=== PATIENT | female | born 1930 | race American Indian/Alaskan Native ===

== ENCOUNTER 2017-05-24 14:21 | Outpatient (CLI) | payer MEDICARE ==
--- NOTE | 2017-05-25 10:21 | Mammography Report ---
Screening mammogram: The patient had this exam on the above date . It was indicated to us that previous exams should be available from 2015 that would be helpful in providing optimal evaluation with regards to the current study. A final report will be issued, pending receipt of the prior study. CAD was utilized. BI-RADS CATEGORY: 0 = Needs additional imaging evaluation ACR BI-RADS MAMMOGRAPHIC CODES: 0 = Needs additional imaging evaluation; 1 = Negative; 2 = Benign; 3 = Probably benign; 4 = Suspicious; 5 = Malignant; 6 = Known biopsy-proven malignancy COMMENT: 1. Dense breast tissue, i.e., adenosis, fibrocystic changes, etc., may obscure an underlying neoplasm. 2. Approximately 10% of cancers are not detected with mammography. 3. A negative mammography report should not delay biopsy if a clinically suspicious mass is present.
== END 2017-05-24 14:22 | disposition home or self-care (01) ==
LOC: MAMMO 14:21
PROVIDERS: ATTEND Nurse Practitioner
DX: Z12.31 Encounter for screening mammogram for malignant neoplasm of breast (principal)
CPT/HCPCS: 77067; G0202

== ENCOUNTER 2019-08-19 09:13 | Outpatient (CLI) | payer MEDICARE ==
--- NOTE | 2019-08-19 11:51 | Mammography Report ---
DIGITAL SCREENING MAMMOGRAM WITH CAD, 08/19/2019 INDICATION: Routine screening mammography. TECHNIQUE: Digital bilateral 2D mammography was obtained in the craniocaudal and mediolateral obliq ue projections. This examination was interpreted with the benefit of Computer-Aided Detection analysi s. COMPARISON: [id number] FINDINGS: Breast Density: The breasts are almost entirely fatty. There is no evidence of dominant mass, suspicious calcifications or architectural distortion in eithe r breast. IMPRESSION: No mammographic evidence of malignancy. Follow up recommendation: Routine yearly BI-RADS Category 1: Negative. A "normal" or negative report should not discourage follow up or biopsy of a clinically significant f inding. A written summary of these findings will be mailed to the patient. The patient will be entered into a mammography reporting system which will generate a reminder letter for the patient's next appointmen t at the appropriate interval. The [employer] recommends yearly mammograms starting at age 40 and continuing as l hany as a woman is in good health. Breast MRI is recommended for women with an approximate 20-25% or greater lifetime risk of breast cancer, including women with a strong family history of breast or ova geni cancer or who have been treated for Hodgkin's disease. Signer Name: Tone Walker MD Signed: 08/19/2019 11:47 AM Workstation Name: [id number]
== END 2019-08-19 09:14 | disposition home or self-care (01) ==
LOC: MAMMO 09:13
PROVIDERS: ATTEND Internal Medicine
DX: Z12.31 Encounter for screening mammogram for malignant neoplasm of breast (principal)
CPT/HCPCS: 77067

== ENCOUNTER 2020-08-23 09:30 | Outpatient (CLI) | payer MEDICARE ==
--- NOTE | 2020-08-23 11:14 | Mammography Report ---
DIGITAL SCREENING MAMMOGRAM WITH CAD, 08/23/2020 CLINICAL INFORMATION / INDICATION: Routine screening mammography. SCREENING TECHNIQUE: Digital bilateral 2D mammography was obtained in the craniocaudal and mediolateral obliqu e projections. This examination was interpreted with the benefit of Computer-Aided Detection analysis . COMPARISON: 08/19/19, 05/28/18 FINDINGS: Breast Density: The breasts are almost entirely fatty. No dominant mass, suspicious calcifications, or architectural distortion in either breast. IMPRESSION: No mammographic evidence of malignancy. Follow up recommendation: Routine yearly BI-RADS Category 1: Negative. A "normal" or negative report should not discourage follow up or biopsy of a clinically significant f inding. A written summary of these findings will be mailed to the patient. The patient will be entered into a mammography reporting system which will generate a reminder letter for the patient's next appointmen t at the appropriate interval. The [employer] recommends yearly mammograms starting at age 40 and continuing as l hany as a woman is in good health. Breast MRI is recommended for women with an approximate 20-25% or greater lifetime risk of breast cancer, including women with a strong family history of breast or ova geni cancer or who have been treated for Hodgkin's disease. Signer Name: Jaylene Gambino MD Signed: 08/23/2020 11:09 AM Workstation Name: [id number]
== END 2020-08-23 09:31 | disposition home or self-care (01) ==
LOC: MAMMO 09:30
PROVIDERS: ATTEND Internal Medicine
DX: Z12.31 Encounter for screening mammogram for malignant neoplasm of breast (principal)
CPT/HCPCS: 77067